=== PATIENT | male | born 1985 | race Caucasian/White ===

== ENCOUNTER 2021-03-23 21:14 | Inpatient (IN) ==
[2021-03-23 22:03] LABS: Basophils % 0.4 %; Eosinophils # 0.2 K/mcL (0.0-0.6); Eosinophils % 2.4 %; Hematocrit 40.2 % (37.5-50.1); Hemoglobin 14.1 g/dL (12.9-16.9); Immature Granulocytes % 0.1 % (0-4); Lymphocytes # 1.6 K/mcL (0.6-4.6); Lymphocytes % 22.2 %; Mean Corpuscular HGB Conc 35.1 g/dL (31.6-35.5); Mean Corpuscular Hemoglobin 31.4 pg (28.0-33.3); Mean Corpuscular Volume 89.5 fL (83.0-100.0); Mean Platelet Volume 9.1 fL (9.4-12.4); Monocytes # 0.8 K/mcL (0.0-1.3); Monocytes % 10.5 %; Neutrophils # 4.7 K/mcL (1.6-8.9); Platelet Count 290 K/mcL (140-400); Red Blood Count 4.49 M/mcL (4.19-5.50); Red Cell Distribution Width 12.5 % (11.5-14.5); Segmented Neutrophils % 64.4 %; White Blood Count 7.2 K/mcL (4.3-11.1)
[2021-03-23] MEDS ORDERED: *HR* LORazepam 0.5 MG TABLET PO ONE (22:08)
[2021-03-23 22:12] LABS: Bilirubin,Urine Negative (Negative); Blood,Urine Negative (Negative); Clarity,Urine Clear (Clear); Color,Urine Light-Yellow (Yellow); Glucose,Urine (UA) Normal (Normal); Ketones,Urine Negative (Negative); Leukocyte Esterase,Urine Negative (Negative); Nitrite,Urine Negative (Negative); Protein,Urine Trace mg/dL (Neg-Trace); Specific Gravity,Urine > 1.030 (1.010-1.025)
[2021-03-23 22:23] LABS: Acetaminophen < 10 mcg/mL (10-20); BUN/Creatinine Ratio 18 (6-26); Blood Urea Nitrogen 16 mg/dL (6-20); Calcium 8.8 mg/dL (8.6-10.3); Carbon Dioxide 23 mEq/L (23-29); Chloride 106 mEq/L (98-107); Chol/HDL Ratio 5.4 (0-4.9); Cholesterol 228 mg/dL (< 200); Glucose 94 mg/dL (70-105); HDL Cholesterol 42 mg/dL (40-59); LDL Cholesterol,Calculated 140 mg/dL (< 100); Osmolality,Calculated 283 (280-300); Potassium 3.9 mEq/L (3.5-5.1); Salicylate < 2.5 mg/dL (15.0-30.0); Sodium 136 mEq/L (136-145); Triglycerides 232 mg/dL (< 150); eGFR For African Americans > 60 (> 60); eGFR For Non-African Americans > 60 (> 60)
[2021-03-23 22:24] LABS: Ethanol < 10 mg/dL (Less than 10)
[2021-03-23 22:57] LABS: Amphetamine Screen,Urine Positive ng/mL (Cutoff=1000); Barbiturate Screen,Urine Negative ng/mL (Cutoff=200); Benzodiazepines Screen,Urine Negative ng/mL (Cutoff=200); Cannabinoid Screen,Urine Positive ng/mL (Cutoff = 50); Cocaine Screen,Urine Negative ng/mL (Cutoff= 300); Opiate Screen,Urine Negative ng/mL (Cutoff=300); Phencyclidine Screen,Urine Negative ng/mL (Cutoff=25)
[2021-03-24 03:12] LABS: Influenza A PCR Negative (Negative); Influenza B PCR Negative (Negative); Resp. Syncytial Virus PCR Negative (Negative)
[2021-03-24 03:14] LABS: SARS-CoV-2 by PCR (In House) Negative (Negative)
[2021-03-24] MEDS ORDERED: Ibuprofen 400 MG TABLET PO PRN (03:22)
[2021-03-24] MEDS ORDERED: *HR* LORazepam 2 MG/ML VIAL IM PRN (03:22)
[2021-03-24] MEDS ORDERED: Haloperidol Lactate 5 MG/ML VIAL IM PRN (03:22)
[2021-03-24] MEDS ORDERED: Acetaminophen 325 MG TABLET PO PRN (03:22)
[2021-03-24] MEDS ORDERED: *HR* LORazepam 1 MG TABLET PO PRN (03:22)
[2021-03-24] MEDS ORDERED: haloperidoL 5 MG TABLET PO PRN (03:22)
[2021-03-24] MEDS ORDERED: Nicotine 21 MG PATCH.TD24 TD SCH (09:00)
[2021-03-24] MEDS: Nicotine 2 MG GUM BC PRN ×2 (10:56→17:14)
[2021-03-24] MEDS: BuPROPion XL (24 HR) 150 MG TABLET PO SCH (13:43)
[2021-03-24] MEDS: traZODone 50 MG TABLET PO PRN (20:10)
[2021-03-24] MEDS: hydrOXYzine pamoate 25 MG CAPSULE PO PRN (20:10)
[2021-03-25] MEDS: BuPROPion XL (24 HR) 150 MG TABLET PO SCH (08:25)
[2021-03-25] MEDS: Nicotine 2 MG GUM BC PRN (12:46)
[2021-03-25] MEDS: hydrOXYzine pamoate 25 MG CAPSULE PO PRN (20:02)
[2021-03-25] MEDS: traZODone 50 MG TABLET PO PRN (20:02)
[2021-03-26] MEDS: BuPROPion XL (24 HR) 150 MG TABLET PO SCH (09:16)
[2021-03-26 09:19] VITALS: BP 127/81; PULSE 62; TEMP 98.2; O2SAT 99
== END 2021-03-26 10:25 | disposition home or self-care (01) | DRG 751 ==
LOC: EMEROOARM 21:14 → 1ANU 03-24 03:30
PROVIDERS: ADMIT Psychiatry & Neurology Psychiatry; ATTEND Psychiatry & Neurology Psychiatry